=== PATIENT | female | born 1985 | race Caucasian/White ===

== ENCOUNTER 2020-07-04 02:33 | Emergency (ER) | payer OTHER ==
[~2020-07-04] VITALS: Ht 152.4 cm; Wt 78.5 kg
--- NOTE | 2020-07-04 02:35 | NUR ---
PT AAOX4. BIBRA C/O HYPOTENSION S/P SYNCOPE. PER PT SHE HAD A BODYLIFT SURGERY 07/03/20. BECAME HYPOTENSIVE AND HAD A SYNCOPAL EPISODE. PT PLACED IN BED 4 ON MONITOR AND PULSE OX. VITALS STABLE, NO ACUTE DISTRESS NOTED. MD AT BEDSIDE FOR EVAL. AWAITING ORDERS.
--- NOTE | 2020-07-04 02:46 | NUR ---
DR. MARTIN SPEAKING WITH PT'S SURGEON, DR. AYSE SANTANA ([phone])
--- NOTE | 2020-07-04 02:46 | NUR ---
ONELIA (PT'S HOME NURSE) CONTACT INFORMATION: [phone]
[2020-07-04] MEDS ORDERED: ONDANSETRON HCL/PF 4 MG/2 ML VIAL ONE (02:48)
--- NOTE | 2020-07-04 02:55 | NUR ---
PT'S MOTHER'S PHONE NUMBER: [phone] (MARIAH
--- NOTE | 2020-07-04 02:58 | NUR ---
blood sent to lab
[2020-07-04] MEDS ORDERED: IV NS 0.9% 1,000 ML BAG IV ONE ×2 (03:00→05:00)
[2020-07-04] MEDS ORDERED: ONDANSETRON HCL/PF 4 MG/2 ML VIAL IVP ONE (03:00)
--- NOTE | 2020-07-04 03:11 | NUR ---
PT BROUGHT BY RADIOLOGY TO CT
[2020-07-04 03:15] LABS: BASOPHILS % (AUTO) 0.1 % (0.0-2.0); HEMATOCRIT 28 % (33-45); HEMOGLOBIN 9.2 g/dL (11.5-14.8); LYMPHOCYTES # (AUTO) 0.8 /CMM (0.8-4.8); LYMPHOCYTES % (AUTO) 7.5 % (20.0-44.0); MEAN CORPUSCULAR HGB CONC 34 g/dl (31.0-36.0); MEAN CORPUSCULAR VOLUME 88 fL (82-100); MONOCYTES % (AUTO) 9.9 % (2.0-12.0); NEUTROPHILS # (AUTO) 8.7 /CMM (1.8-8.9); NEUTROPHILS % (AUTO) 82.5 % (43.0-81.0); PLATELET COUNT (AUTO) 230 /CMM (150-450); RED BLOOD CELL COUNT(AUTO) 3.13 MIL/uL (4.0-5.2); WHITE BLOOD COUNT (AUTO) 10.5 K/uL (4.3-11.0)
[2020-07-04 03:29] LABS: ALBUMIN 3.1 g/dL (3.4-5.0); BILIRUBIN,DIRECT 0.1 mg/dL (0.0-0.2); BILIRUBIN,TOTAL 0.5 mg/dL (0.2-1.0); CALCIUM, SERUM 8.3 mg/dL (8.5-10.1); CREATININE 0.8 mg/dL (0.6-1.3); POTASSIUM 4.4 mmol/L (3.5-5.1); TOTAL PROTEIN, SERUM 5.7 g/dL (6.4-8.2)
--- NOTE | 2020-07-04 03:55 | NUR ---
PT RESTING COMFORTABLY. VSS.
--- NOTE | 2020-07-04 04:28 | NUR ---
ATTEMPTED TO CONTACT DR. BALBUENA PER DR. MARTIN REQUEST, LEFT MESSAGE. WILL FOLLOW UP
--- NOTE | 2020-07-04 04:52 | NUR ---
DR. MARTIN SPEAKING WITH DR. SANTANA
--- NOTE | 2020-07-04 05:30 | NUR ---
CALLED [facility] TO SET UP TRANSPORTATION, WILL CALL BACK FOR MD TO AND HANSA PAGE
--- NOTE | 2020-07-04 07:40 | NUR ---
ASSESSED PT ON BED AWAKE AND ALERT, NOT IN RESPIRATORY DISTRESS, V/S STABLE, KEPT RESTED AND COMFORTABLE. AWAITING [facility] FOR AMBULANCE TRANSFER FOR DISCHARGE.
--- NOTE | 2020-07-04 08:00 | NUR ---
REPORT GIVEN TO EMS FOR PT DISCHARGED.
[2020-07-04 08:24] VITALS: BP 99/110
--- NOTE | 2020-07-04 08:24 | NUR ---
IV removed. Catheter intact and site benign. Pressure and 4x4 applied to site. No bleeding noted. Patient discharged to home in stable condition. Written and verbal after care instructions given. Patient verbalizes understanding of instruction.
== END 2020-07-04 08:25 | disposition home or self-care (01) ==
LOC: ER 02:37
DX: L76.22 Postprocedural hemorrhage of skin and subcutaneous tissue following other procedure (principal); R55 Syncope and collapse; I95.9 Hypotension, unspecified
CPT/HCPCS: 36415; 74176; 80048; 80076; 85025; 86850; 86923; 96361; 96374; 99285; J2405; J7030 ×2